=== PATIENT | female | born 1950 | race African-American/Black ===

== ENCOUNTER 2024-12-20 14:31 | Emergency (ER) | payer MEDICARE, OTHER ==
[~2024-12-20] VITALS: Ht 170.2 cm; Wt 81.3 kg
--- NOTE | 2024-12-20 16:26 | ED.PDOC ---
History of Present Illness HPI Comments 74 y/o F presents with c/c of lower back pain. Patient reports history of chronic back pain and reports on coming to the ED for pain management, due to pain worsening all day, today. No relief or improvement of pain with caro-hpi-zocrvjn pain medication. She is being seen for pain via outpatient care and is pending outpatient surgical intervention for her back. Was informed by her surgeon to take [id number] medication to manage her pain, with no prescription given then following last consultation. No reported recent injuries or strenuous activities. Denial of any further acute symptoms at this time. Additionally, patient states she has a history of Parkinson's. Patient was hy pertensive at arrival. Patient does state intermittent chest pain over the past few days. Chief Complaint: Back Pain Time Seen by MD: 15:20 Reviewed Notes: Nurses Notes, Medications, Allergies Allergies: Coded Allergies: NO KNOWN ALLERGIES (Unverified , 12/20/24) Home Meds Active Scripts Clonidine Hydrochloride (Clonidine Hcl) 0.2 Mg Tab, 1 TAB PO Q12HP PRN, #10 TAB 0 Refills To be used if systolic pressure is above 160 or diastolic pressure is above 90. Prov:BOB MCKEON PAC 12/20/24 Hydrocodone-Acetaminophen (Hydrocodone Bitartrate/AC 10-325 mg) 1 Tab Tab, 1 TAB PO Q8HP PRN, #12 TAB Prov:BOB MCKEON PAC 12/20/24 Sulfamethoxazole W/Trimethopri (Bactrim Ds Tablet) 1 Tab Tb, 1 TAB PO BID for 5 Days, #10 TAB Patient to take 1st dose on 12/21/2024 Prov:BOB MCKEON [facility] 12/20/24 Information Source: Patient Mode of Arrival: Ambulatory Severity: Moderate Timing: Hours Duration: Since onset Prehospital treatment: None Past Medical History PAST MEDICAL HISTORY: HTN Past Medical History (Other): chronic back pain , Parkinson's Surgical History: Denies all surgeries INDUSTRIAL STAFF NURSE History: No Pertinent INDUSTRIAL STAFF NURSE History Family History Family History: Reviewed,noncontributory to illness, No family hx of Cancer, No family hx of DM, No family hx of Heart ngozi, No family hx of HTN, No family hx ofKidney ngozi, No family hx of Liver ngozi, No family hx of Lung ngozi, No family hx of Stroke Social History Smoker: Non-Smoker Alcohol: Denies ETOH Use Drugs: Denies Drug Use Lives In: Home Constitutional: denies: chills, diaphoresis, fatigue, fever, malaise, sweats, weakness, others EENTM: denies: blurred vision, double vision, ear bleeding, ear discharge, ear drainage, ear pain, ear ringing, eye pain, eye redness, hearing loss, mouth pain, mouth swelling, nasal discharge, nose bleeding, nose congestion, nose pain, photophobia, tearing, throat pain, throat swelling, voice changes, others Respiratory: denies: cough, hemoptysis, orthopnea, SOB at rest, shortness of breath, SOB with excertion, stridor, wheezing, others Cardiovascular: denies: chest pain, dizzy spells, diaphoresis, Dyspnea on exertion, edema, irregular heart beat, left arm pain, lightheadedness, palpitations, PND, syncope, others Gastrointestinal: reports: abdominal pain (Radiating from the back); denies: abdomen distended, blood streaked bowels, constipated, diarrhea, dysphagia, difficulty swallowing, hematemesis, melena, nausea, poor appetite, poor fluid intake, rectal bleeding, rectal pain, vomiting, others Genitourinary: denies: abnormal vagina bleeding, burning, dyspareunia, dysuria, flank pain, frequency, hematuria, incontinence, pain, , vagina discharge , urgency, others Neurological: denies: dizziness, fainting, headache, left sided numbness, left sided weakness, numbness, paresthesia, pre-existing deficit, right sided numbness, right sided weakness, seizure, speech problems, tingling, tremors, weakness, others Musculoskeletal: reports: back pain; denies: gout, joint pain, joint swelling, muscle pain, muscle stiffness, neck pain, others Integumetry: denies: bruises, change in color, change in hair/nails, dryness, laceration, lesions, lumps, rash, wounds, others Allergic/Immunocompromised: denies: Difficulty Healing, Frequent Infections, Hives, Itching, others Hematologic/Lymphatic: denies: anemia, blood clots, easy bleeding, easy bruising, swollen glands, others Endocrine: denies: excessive hunger, excessive sweating, excessive thirst, excessive urination, flushing, intolerance to cold, intolerance to heat, unexplained weight gain, unexplained weight loss, others Psychiatric: denies: anxiety, bipolar disorder, depression, hopeless, panic disorder, schizophrenia, sleepless, suicidal, others All Other Systems: Reviewed and Negative (Comprehensive review of systems are negative unless stated in HPI) Physical Exam General Appearance: Moderate Distress (Due to back pain concerns. Patient appears to be in poor overall health. Patient ambulates with a cane.), Obese HEENT: Normal ENT Inspection, Pharynx Normal, TMs Normal Neck: Full Range of Motion, Non-Tender, Normal, Normal Inspection Respiratory: Chest Non-Tender, Lungs Clear, No Accessory Muscle Use, No Respiratory Distress, Normal Breath Sounds Cardiovascular: No Edema, No JVD, No Murmur, No Gallop, Normal Peripheral Pulses, Regular Rate/Rhythm Breast Exam: Deferred Gastrointestinal: Other (Diffuse nonspecific bilateral lower abdominal pain. No pulsatile masses. Difficult to assess due to body habitus.) Genitalia: Deferred Pelvic: Deferred Rectal: Deferred Extremities: Normal capillary refill, Non-tender Neurologic: Alert Cerebellar Function: NOT DONE Reflexes: NOT DONE Skin: Dry, Normal Color, Warm Lymphatic: No Adenopathy Was a procedure done? Was a procedure done?: No Differential Dx Considerations may include: Chronic back pain syndrome, sciatica, degenerative disc disease, musculoskeletal pain, UTI X-Ray, Labs, Meds, VS Vital Signs Date Time Temp Pulse Resp B/P (MAP) Pulse Ox O2 Delivery O2 Flow Rate FiO2 12/20/24 19:05 86 18 155/81 (105) 99 12/20/24 17:50 80 12/20/24 17:19 97.8 82 18 176/98 (124) 97 97.8 12/20/24 14:43 98.1 82 18 161/84 98 98.1 Lab Test 12/20/24 18:03 12/20/24 16:30 Range/Units SARS-CoV-2 Antigen (Rapid) Negative NEGATIVE Urine Color Light-yellow Yellow Urine Clarity Clear Clear Urine pH 5.5 5.0-9.0 Urine Specific [place] 1.012 1.001-1.035 Urine Protein Negative Negative Urine Ketones Negative Negative Urine Blood Negative Negative /uL Urine Nitrite Negative Negative Urine Bilirubin Negative Negative Urine Urobilinogen Normal Negative mg/dL Urine Leukocyte Esterase 2+ Negative /uL Urine RBC 1 0 - 4 /hpf Urine Microscopic WBC 12 H 0-5 /HPF Urine Squamous Epithelial Cells None seen <5 /hpf Urine Bacteria None seen None Seen /hpf Urine Mucus Few None Seen Urine Glucose Normal Normal mg/dL Current Medications Medications (Trade) Dose Ordered Sig/Jo Route Start Time Stop Time Status Last Admin Acetaminophen/ Hydrocodone Bitart ([place] 10/325MG Tab) 1 tab ONCE ONCE PO 12/20/24 15:30 12/20/24 15:31 DC 12/20/24 17:53 Trimethoprim/ Sulfamethoxazole (Bactrim Ds Tablet) 1 tab ONCE ONCE PO 12/20/24 17:45 12/20/24 17:46 DC 12/20/24 19:10 X-Ray, Labs, Meds, VS Comment All studies performed the ED were evaluated by me personally. Urinalysis confirmed a urinary tract infection. Swabs were negative for COVID. EKG revealed a sinus rhythm with a rate of 80. ID interval of 158 and QT interval of 386. Normal EKG. Patient will be dispensed antibiotics to address that concern. Patient needs to continue follow up with specialist for management of chronic back pain issues. Additionally, patient should talk to her primary care provider for discussions related to blood pressure concerns as it appears her blood pressure is currently poorly managed. Blood pressure returned to an acceptable zone prior to discharge. Time of 1ST Reevaluation: 19:50 Reevaluation 1ST: Improved Consultation: PCP Patient Education/Counseling: Diagnosis, Treatment, Need For Follow Up Family Education/Counseling: Diagnosis, Treatment, No Family Present SEPSIS Sepsis Screen Date sepsis recognized/suspect: Dec 20, 2024 Time Sepsis recognized/suspect: 1445 Recent Procedure: No On Antibiotic Therapy: No Respiratory Rate >20: No Heart Rate >90: No Temp<36 C (96.8 F) or >38.3 C: No SBP <90 or MAP <65 mmHG: No New Acute Mental Status Change: No Is the patient on CPAP, BIPAP,: No Vital Signs Date Time Temp Pulse Resp B/P (MAP) Pulse Ox O2 Delivery O2 Flow Rate FiO2 12/20/24 19:05 86 18 155/81 (105) 99 12/20/24 17:50 80 12/20/24 17:19 97.8 82 18 176/98 (124) 97 97.8 12/20/24 14:43 98.1 82 18 161/84 98 98.1 Medications Medications Dose Ordered Sig/Jo Route Start Time Stop Time Status Last Admin Dose Admin Acetaminophen/ Hydrocodone Bitart 1 tab ONCE ONCE PO 12/20/24 15:30 12/20/24 15:31 DC 12/20/24 17:53 Trimethoprim/ Sulfamethoxazole 1 tab ONCE ONCE PO 12/20/24 17:45 12/20/24 17:46 DC 12/20/24 19:10 Departure 1 Departure Time of Disposition: 19:50 Impression: Primary Impression: Chronic back pain Additional Impression: Urinary tract infection Disposition: HOME / SELF CARE / HOMELESS Condition: Stable Additional Instructions: Advised patient utilize antibiotics as directed until completion. Patient needs to follow up with the primary care provider or pain management for long-term management of her chronic back pain concerns. Additionally, patient needs to follow up with specialist for continued possible surgical intervention as well as conversations related to what appears to be poorly controlled hypertension. Emergent medication as needed. e-Prescriptions Clonidine Hydrochloride (Clonidine Hcl) 0.2 Mg Tab 1 TAB PO Q12HP PRN, #10 TAB 0 Refills To be used if systolic pressure is above 160 or diastolic pressure is above 90. Prov: BOB MCKEON PAC 12/20/24 Hydrocodone-Acetaminophen (Hydrocodone Bitartrate/AC 10-325 mg) 1 Tab Tab 1 TAB PO Q8HP PRN, #12 TAB Prov: BOB MCKEON PAC 12/20/24 Sulfamethoxazole W/Trimethopri (Bactrim Ds Tablet) 1 Tab Tb 1 TAB PO BID for 5 Days, #10 TAB Patient to take 1st dose on 12/21/2024 Prov: BOB MCKEON PAC 12/20/24 Discharged With: Self, Spouse Critical Care Note Critical Care Time?: No Stability Stability form required: No Heart Score Heart Score: Heart Score Response (Comments) Value History Slightly Suspicious 0 EKG Repolarization Disturb 1 Age >65 2 Risk Factors 1 or 2 risk factors 1 Troponin N/A 0 Total 4 I personally scribed for BOB MCKEON PAC ([email or web address]) on 12/20/24 at 16:26. Electronically submitted by Nathan Griffiths ([email or web address]). BOB MCKEON PAC Dec 20, 2024 16:26
[2024-12-20 17:05] LABS: Urine Protein, UAD Negative (Negative)
[2024-12-20 17:19] VITALS: TEMP 97.8
[2024-12-20] MEDS ORDERED: HYDR-4798 PO (17:45)
[2024-12-20] MEDS ORDERED: BACDST PO (17:45)
[2024-12-20] MEDS ORDERED: CLON0.2T PO (17:47)
[2024-12-20] MEDS: HYDROcodone-ACET 10/325MG TAB PO ONE (17:53)
--- NOTE | 2024-12-20 18:09 | ECG ---
[facility] Test Date: 2024-12-20 Test Time: 17:46:28 Pat Name: LAURENCE MELGAR Department: [facility] ED Patient ID: [facility]-[id number] Room: Gender: F Senior Applications Architect: JEREMIAH : [id number] Requested By: BOB MCKEON Order Number: [id number] Reading MD: Danny Campoverde Measurements Intervals [place] Rate: 80 P: 63 KS: 158 QRS: 20 QRSD: 82 T: 36 QT: 386 QTc: 446 Interpretive Statements Sinus rhythm Electronically Signed On 12-20-2024 20:44:14 PDT by Danny Campoverde Please click the below link to view image of tracing.
[2024-12-20 19:05] VITALS: BP 155/81; PULSE 86; RESP 18; O2SAT 99
[2024-12-20] MEDS: SULFAMETHOX W/TRIMETH(800/160MG) DS TAB PO ONE (19:10)
[2024-12-20 19:19] LABS: COVID19 ANTIGEN SOFIA FIA NEGATIVE (NEGATIVE)
[2024-12-20] MEDS: CARBIDOPA W LEVODOPA 25/100mg TABLET PO ONE (19:54)
== END 2024-12-20 20:15 | disposition home or self-care (01) ==
LOC: ER 14:31
DX: N39.0 Urinary tract infection, site not specified (principal); M54.50 Low back pain, unspecified; I10 Essential (primary) hypertension; G89.29 Other chronic pain; G20.A1 Parkinson's disease without dyskinesia, without mention of fluctuations; Z79.899 Other long term (current) drug therapy; Z20.822 Contact with and (suspected) exposure to COVID-19
CPT/HCPCS: 36415; 81001; 87426; 93005